=== PATIENT | male | born 1965 | race Caucasian/White ===

== ENCOUNTER 2018-09-22 08:26 | Emergency (ER) | payer MEDICAID ==
[2018-09-22] MEDS ORDERED: Lidocaine/Prilocaine 2.5-2.5% Crm 5 GM Tube ONE (08:33)
[2018-09-22] MEDS ORDERED: Lidocaine/Prilocaine 2.5-2.5% Crm 5 GM Tube TOP ONE (08:35)
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
[2018-09-22] MEDS ORDERED: LORazepam 0.5 MG Tab PO ONE (14:15)
== END 2018-09-22 15:05 ==
LOC: CC.ED 08:26
DX: F20.9 Schizophrenia, unspecified (principal); F03.90 Unspecified dementia, unspecified severity, without behavioral disturbance, psychotic disturbance, mood disturbance, and anxiety; E78.00 Pure hypercholesterolemia, unspecified; I10 Essential (primary) hypertension; J44.9 Chronic obstructive pulmonary disease, unspecified; Z79.82 Long term (current) use of aspirin; Z79.899 Other long term (current) drug therapy; Z87.891 Personal history of nicotine dependence
CPT/HCPCS: 81001; 99285; A9270-GY